=== PATIENT | male | born 1995 | race Caucasian/White ===

== ENCOUNTER → 2022-05-13 | Day surgery (SDC) | payer BC ==
[2022-05-09 13:09] VITALS: BMI 31.8
[~2022-05-13] MED LIST: PROPOFOL 40 ML ONE
== END ==
LOC: CSHSDC 06:46
PROVIDERS: ATTEND Internal Medicine Gastroenterology
PROC: 0DBL8ZZ Excision of Transverse Colon, Via Natural or Artificial Opening Endoscopic (ICD-10-PCS; principal; 2022-05-13)
DX: D12.3 Benign neoplasm of transverse colon (principal); K57.30 Diverticulosis of large intestine without perforation or abscess without bleeding; Z80.9 Family history of malignant neoplasm, unspecified
CPT/HCPCS: 88305; J2704